=== PATIENT | female | born 1985 | race Caucasian/White ===

== ENCOUNTER 2018-10-25 11:06 | Emergency (ER) | payer OTHER ==
[~2018-10-25] VITALS: Wt 76.0 kg
[2018-10-25 11:17] VITALS: BP 141/87; PULSE 79; RESP 17
[2018-10-25] MEDS ORDERED: CEPHALEXIN 500 MG CAP PO ONE (12:00)
[2018-10-25] MEDS ORDERED: LIDOCAINE 1% (MDV) 20 ML INJ SC ONE (12:00)
[2018-10-25] MEDS ORDERED: IBUPROFEN 600 MG TAB PO ONE (12:00)
[2018-10-25] MEDS ORDERED: IBUP-1542 PO (12:41)
[2018-10-25] MEDS ORDERED: CEPH-443 PO (12:41)
--- NOTE | 2018-10-25 12:49 | ERD ---
ER Documentation Chief Complaint Chief Complaint RIGHT 1ST TOE PAIN X1 DAY, DENIES INJURY HPI 33-year-old female presents with pain in the right big toe over the last few days. There is been some redness mild swelling around the nail which is deformed. She has a history of nail deformity of her several months. Deformity did possibly start after dropping object on her toe. ROS All systems reviewed and are negative except as per history of present illness. Medications Home Meds Active Scripts Cephalexin* (Keflex*) 500 Mg Capsule, 500 MG PO QID for 7 Days, CAP Prov:LINDEN SCANLON MD 10/25/18 Ibuprofen* (Ibuprofen*) 600 Mg Tablet, 600 MG PO Q6, #15 TAB Prov:LINDEN SCANLON MD 10/25/18 Allergies Allergies: Coded Allergies: No Known Allergy (Unverified , 10/25/18) PMhx/Soc Medical and Surgical Hx: pt denies Medical Hx, pt denies Surgical Hx Hx Alcohol Use: Yes (SOCIAL) Hx Substance Use: No Hx Tobacco Use: No FmHx Family History: No diabetes, No coronary disease, No other Physical Exam Vitals Vital Signs Date Temp Pulse Resp B/P (MAP) Pulse Ox O2 O2 Flow FiO2 Time Delivery Rate 10/25/18 98.8 79 17 141/87 98 11:17 (105) Physical Exam Const: No acute distress Head: Atraumatic Eyes: Normal Conjunctiva ENT: Normal External Ears, Nose and Mouth. Neck: Full range of motion. No meningismus. Resp: Clear to auscultation bilaterally Cardio: Regular rate and rhythm, no murmurs Abd: Soft, non tender, non distended. Normal bowel sounds Skin: No petechiae or rashes Back: No midline or flank tenderness Ext: No cyanosis, or edema. Right big toe shows a thickening and discoloration of the great toenail. There is some surrounding redness and swelling extending to the pad and paronychial area. No active discharge or fluctuance. No bony tenderness or deformities. Neur: Awake and alert Psych: Normal Mood and Affect Results 24 hrs Current Medications Medications Dose Sig/Jogre Start Time Status Last (Trade) Ordered Route PRN Stop Time Admin Dose Reason Admin Ibuprofen 600 mg ONCE ONCE 10/25/18 DC 10/25/18 (Motrin) PO 12:00 11:45 10/25/18 12:01 Cephalexin 500 mg ONCE ONCE 10/25/18 DC 10/25/18 (Keflex) PO 12:00 12:03 10/25/18 12:01 Lidocaine 20 ml ONCE ONCE 10/25/18 DC (Xylocaine SC 12:00 1% (Mdv) 20 10/25/18 12:01 ml) Procedures/MDM Procedure note-right big toe was prepped with Betadine. 3 cc lidocaine was used to perform a digital block. Anesthesia was obtained. Using forceps the deformed nail was removed. Slight punctate bleeding of the nailbed without appreciable lacerations. Wound was dressed. Presents with signs and symptoms of what appears to be onychomycosis with possible surrounding irritation or secondary infection. Will treat with ib uprofen, Keflex, instruction for warm soaks and return precautions for worsening redness, fevers, new or worsening symptoms. Current signs or symptoms do not suggest osteo-myelitis, tenosynovitis, significant cellulitis, additional complications. Patient should however return for new or worsening symptoms. Treatment options were discussed for onychomycosis and patient is advised to follow-up with primary care doctor. The patient was stable with no new complaints during the ER course. Clinically, there is no current evidence to suggest meningitis, sepsis, acute abdomen, pneumonia, stroke, acute coronary syndrome, pulmonary embolism, aortic dissection or any other emergent condition appearing to require further evaluation or hospitalization. Patient counseled regarding my diagnostic impression and care plan. Prior to discharge all questions answered. Pt agrees with treatment plan and understands strict return precautions. Pt is instructed to follow up with primary care provider within 24- 48 hours. Precautionary instructions provided including instructions to return to the ER if not improving or for any worsening or changing symptoms or concerns. Departure Diagnosis: Primary Impression: Onychia and paronychia of toe Additional Impression: Nail problem Condition: Stable Patient Instructions: Onychomycosis, Paronychia Additional Instructions: Warm soaks at home. Recheck for worsening redness, pain, fevers, new worsening symptoms. LINDEN SCANLON MD Oct 25, 2018 12:49
== END 2018-10-25 13:37 | disposition home or self-care (01) ==
LOC: FTE 11:06
DX: L03.031 Cellulitis of right toe (principal); L60.9 Nail disorder, unspecified
CPT/HCPCS: 73660; Z7502; Z7610

== ENCOUNTER 2019-05-05 18:40 | Emergency (ER) | payer OTHER ==
[~2019-05-05] VITALS: Ht 165.1 cm; Wt 79.8 kg
[~2019-05-05 18:40] MED LIST: CEPH-443 PO; IBUP-1542 PO; IBUP-1561 PO
[2019-05-05 18:42] VITALS: BP 136/93; PULSE 97; RESP 19; Ht 165.1 cm; Wt 79.8 kg
[2019-05-05] MEDS ORDERED: KETOROLAC 15 MG INJ IV STA (20:14)
--- NOTE | 2019-05-05 20:17 | ERD ---
ER Documentation Chief Complaint Chief Complaint RIGHT SIDE DENTAL PAIN; REFFERED BY DENTIST FOR IV ATBs HPI 33-year-old female, presents to the emergency department, referred by her dentis t for IV antibiotics. The patient has been complaining of right upper dental pain for 1 week, associated with headache, subjective fever and general malaise. The patient is a scheduled to have a procedure next week with her doctor. Otherwise, the patient denies difficulty swallowing, no shortness of breath. She has a prescription for Augmentin. ROS All systems reviewed and are negative except as per history of present illness. Medications Home Meds Active Scripts Ibuprofen* (Motrin*) 400 Mg Tab, 400 MG PO Q8, #20 TAB Prov:JOAQUIN PENNINGTON MD 05/05/19 Cephalexin* (Keflex*) 500 Mg Capsule, 500 MG PO QID for 7 Days, CAP Prov:LINDEN SCANLON MD 10/25/18 Ibuprofen* (Ibuprofen*) 600 Mg Tablet, 600 MG PO Q6, #15 TAB Prov:LINDEN SCANLON MD 10/25/18 Allergies Allergies: Coded Allergies: No Known Allergy (Unverified , 10/25/18) PMhx/Soc Medical and Surgical Hx: pt denies Medical Hx, pt denies Surgical Hx Hx Alcohol Use: Yes (SOCIAL) Hx Substance Use: No Hx Tobacco Use: No Smoking Status: Never smoker Physical Exam Vitals Vital Signs Date Temp Pulse Resp B/P (MAP) Pulse Ox O2 O2 Flow FiO2 Time Delivery Rate 05/05/19 99.2 97 19 136/93 96 18:42 (107) Physical Exam Patient alert, oriented, vital signs stable. HEAD: Normocephalic, atraumatic. EYES: PERRLA, EOMI, Sclera and conjunctiva appear normal. NOSE: Clear and patent nostrils. EARS: Canals clear, tympanic membranes WNL. MOUTH: right upper dental Tenderness, edema but no definitive fluctuance; normal lips and tongue, no oral lesions. THROAT: Normal oropharynx, no tonsillar exudates. NECK: Supple, No lymphadenopathy. Full ROM without pain or tenderness. HEART: RRR, no rubs, murmurs, clicks or gallops. LUNGS: Clear to auscultation. ABDOMEN: Soft, non-tender without masses or hepatosplenomegaly. EXTREMITIES: No edema bilaterally. BACK: Full ROM, no deformity, normal back exam NEURO: Cranial nerves grossly intact, no motor or sensory deficit SKIN: No rashes, no petechia. Results 24 hrs Laboratory Tests Test 05/05/19 20:35 POC Beta HCG, Qualitative NEGATIVE Current Medications Medications Dose Sig/Jorge Start Time Status Last (Trade) Ordered Route PRN Stop Time Admin Dose Reason Admin Clindamycin 50 ml @ 50 ONCE IVPB 05/05/19 05/05/19 HCl/ mls/hr 20:30 05/05/19 20:45 Dextrose 21:29 8 mg ONCE ONCE 05/05/19 DC 05/05/19 Dexamethasone IV 20:30 05/05/19 20:45 (Decadron) 20:31 Ketorolac 15 mg ONCE STAT 05/05/19 DC 05/05/19 Tromethamine IV 20:14 05/05/19 20:45 (Toradol) 20:21 Procedures/MDM Differential diagnosis include but not limited to: Dental abscess, parotitis, sialoadenitis, lymphadenopathy, facial abscess. Low suspicion for systemic infection. Physical examination and clinical presentation consistent most likely with dental infection. During the ED course the patient remained stable, no new complaints. Clinical impression discussed with the patient who agrees with management. The patient is stable to be treated outpatient and will be discharged home. Some side effects of prescribed medications (headache, rash, nausea, vomiting, diarrhea, drowsiness, habituation, bleeding, hypertension, interactions with other medications) were reviewed. The patient was instructed to follow up with the primary care provider and dentist in the next 48h. If symptoms persist, worsen or new symptoms develop, then patient should return to the ED immediately. Instructions explained and given directly by me to the patient with acknowledgment and demonstrated understanding. Disclaimer: Inadvertent spelling and grammatical errors are likely due to EHR/dictation software use and do not reflect on the overall quality of patient care. Also, please note that the electronic time recorded on this note does not necessarily reflect the actual time of the patient encounter. Departure Diagnosis: Primary Impression: Tooth disease Condition: Stable Patient Instructions: Tooth Abscess Additional Instructions: Thank you very much for allowing us to participate in your care. Your health and safety is our top priority at [facility]. The evaluation in the emergency department has been done to rule out an acute emergency. Chronic, [id number] conditions may have not been evaluated; therefore, you need to follow up with a primary care provider in the next 48h. If symptoms persist, worsen or new symptoms develop, then patient should return to the ED immediately. Call your primary care doctor TOMORROW for an appointment during the next 2-4 days and bring all the information provided. Have prescriptions filled and follow precisely the directions on the label. If the symptoms get worse and your provider is unavailable, return to the Emergency Department immediately. JOAQUIN PENNINGTON MD May 05, 2019 20:17
[2019-05-05] MEDS ORDERED: DEXAMETHASONE 10 MG/ML 1 ML INJ IV ONE (20:30)
[2019-05-05] MEDS ORDERED: CLINDAMYCIN 600 MG/D5W (PMX) 50 ML IVPB SCH (20:30)
== END 2019-05-05 21:22 | disposition home or self-care (01) ==
LOC: FTE 18:40
DX: K08.89 Other specified disorders of teeth and supporting structures (principal)
CPT/HCPCS: 81025; 96374; 96375; J1100; J1885; Z7502; Z7610

== ENCOUNTER 2019-05-26 23:59 | Emergency (ER) | payer OTHER ==
[~2019-05-26] VITALS: Ht 165.1 cm; Wt 80.3 kg
[~2019-05-26 23:59] MED LIST changes: +CIPR500T4 PO; +PHEN-538 PO
[2019-05-27 00:02] VITALS: Ht 165.1 cm; Wt 80.3 kg
[2019-05-27] MEDS ORDERED: KETOROLAC 30 MG INJ IV STA (01:28)
[2019-05-27] MEDS ORDERED: SOD CHLORIDE 0.9% 1,000 ML IV STA (01:28)
[2019-05-27] MEDS ORDERED: CEFTRIAXONE 1 GM/50 ML (PMX) 50 ML IVPB ONE (02:30)
[2019-05-27] MEDS ORDERED: morphine 4 MG/ML VIAL IV STA ×2 (02:59→04:56)
[2019-05-27] MEDS ORDERED: ONDANSETRON 4 MG INJ IV STA (02:59)
[2019-05-27 06:08] VITALS: BP 134/86; PULSE 91; RESP 17
== END 2019-05-27 06:08 | disposition home or self-care (01) ==
LOC: FTE 23:59
DX: N30.00 Acute cystitis without hematuria (principal)
CPT/HCPCS: 36415; 74176; 80053; 81001; 81003; 81025; 83690; 85025; 87086; 96374; 96375; 96376; J0696; J1885; J2270; J2405; J7030; Z7502